=== PATIENT | male | born 1960 ===

== ENCOUNTER → 2021-08-29 | Outpatient (CLI) | payer OTHER ==
--- NOTE | 2021-09-08 11:44 | SLE ---
[facility] [place] [address] POLYSOMNOGRAPHY STUDY Name: BLOSSOM SAWYER Room #: REG TERESITA MataGinaKathyGina#: [id number] Admission: 08/29/21 Attend Phys: Dalia Rodriguez MD Discharge: Date of : 58 Report #: [id number] THIS REPORT FOR: cc: FAM - Family physician unknown FAM - Family physician unknown Lopez Rodriguez MD ~ cc: Ross Shine MD DATE OF SERVICE: 08/29/2021 SLEEP STUDY ATTENDING PHYSICIAN: Attending physician's name is not mentioned. The patient is 60 years old who weighs 290 pounds with a BMI of 40.4. The patient underwent diagnostic sleep study performed at [facility]. During the night study, the patient spent 454 minutes in bed and slept for 308 minutes with a sleep efficiency of 68%, which was low. Sleep latency was 6.7 minutes with a REM latency of 115 minutes. Sleep architecture showed increased stage 1 and stage 2 sleep, normal N3 sleep and reduced REM sleep, which was only 5% of total sleep time. During the night of the study, the patient had 10 obstructive apneas, no mixed apneas, 2 central apneas and 54 hypopneas. The patient's AHI was 12.8 per hour with a REM AHI of 73 per hour and a supine AHI of 50 per hour. EKG monitoring revealed an average heart rate of 69 beats per minute. No sustained arrhythmias observed. PLMs were seen at an index of 28 per hour with only 2 per hour caused EEG arousals. Nocturnal oximetry study revealed an average oxygen saturation of 94% with a lowest of 76%. Six minutes were spent with oxygen saturation of less than 89%. Due to low AHI, the patient did not meet the split night criteria for CPAP initiation. IMPRESSION: 1. Mild obstructive sleep apnea with worsening during supine and REM sleep. Total AHI of 12.8 per hour with a supine AHI of 50 per hour and a REM AHI of 73 per hour. 2. Reduced sleep efficiency resulting from sleep maintenance insomnia. 3. Mild nocturnal hypoxia secondary to obstructive sleep apnea. 4. Moderate PLMs without any significant EEG arousals. [facility] [address] [place] [address] POLYSOMNOGRAPHY STUDY Name: BLOSSOM SAWYER Room #: REG [facility] [place]#: [id number] Admission: 08/29/21 Attend Phys: Dalia Rodriguez MD Discharge: Date of : 58 Report #: [id number] RECOMMENDATIONS: 1. The patient is clinically symptomatic with an [place] score of 13. The patient would benefit from return to the sleep lab for CPAP titration study. Alternatively, home auto CPAP can be considered. 2. Once the patient is optimally treated with CPAP, then follow up in 4-6 weeks to assess compliance and to document clinical improvement. 3. Avoid supine sleep. 4. 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 5. Cautioned regarding driving until symptoms of sleep apnea resolved with above recommendation. 6. PLMs does not need to be treated unless the patient has symptoms of restless legs during the day. <ELECTRONICALLY SIGNED> By: Lopez Rodriguez MD 09/08/21 1144 1746 1849 Lopez Rodriguez MD /nt
== END ==
LOC: SLEEPLAB 16:44
PROVIDERS: ATTEND Internal Medicine Nephrology
DX: G47.33 Obstructive sleep apnea (adult) (pediatric) (principal); R53.83 Other fatigue; E66.9 Obesity, unspecified; R06.83 Snoring

== ENCOUNTER → 2021-09-30 | Outpatient (CLI) | payer OTHER ==
--- NOTE | 2021-10-01 17:14 | SLE ---
[facility] [place] [address] POLYSOMNOGRAPHY STUDY Name: BLOSSOM SAWYER Room #: REG [facility]#: [id number] Admission: 09/30/21 Attend Phys: Lopez Rodriguez MD Discharge: Date of : 58 Report #: [id number] THIS REPORT FOR: cc: FAM - Family physician unknown FAM - Family physician unknown Lopez Rodriguez MD ~ cc: Ross Shine MD DATE OF SERVICE: 10/01/2021 SLEEP STUDY ATTENDING PHYSICIAN: Dr. Ross Shine. The patient is 61 years old who weighs 290 pounds with a BMI of 40.4. The patient's [place] score was 15. The patient had a previous sleep study and was found to have mild PEGGY with worsening during supine and REM sleep. Total AHI was 12.8 per hour with a supine AHI of 50 per hour and a REM AHI of 73 per hour. The patient had reduced sleep efficiency along with mild nocturnal hypoxia and moderate PLMs without any significant EEG arousals. Since the patient was clinically symptomatic, the patient was referred to the Sleep Lab for CPAP titration study. During the night study, the patient spent 361 minutes in bed and slept for 238 minutes with a sleep efficiency of 66%, which was low. Sleep latency was 13.9 minutes with a REM latency of 136 minutes. Sleep architecture showed normal stage I sleep, increased stage 2 sleep, normal slow wave and reduced REM sleep, which was 10.5% of total sleep time. EKG monitoring revealed an average heart rate of 61 beats per minute. No sustained arrhythmias observed. PLMs were seen as an index of 53 per hour with only 4 per hour caused EEG arousals. The patient was started on CPAP at a pressure of 7 cm water and titrated up to 14 cm of water. At the final pressure, the patient had supine sleep as well as REM sleep. The patient's AHI was reduced to 2.4 per hour and oxygen saturation remained above 91%. IMPRESSION: 1. Sleep apnea diagnosed by previous sleep study. 2. No significant nocturnal hypoxia while on CPAP. 3. Severe periodic limb movements without any significant EEG arousals. RECOMMENDATIONS: [facility] [address] [place] [address] POLYSOMNOGRAPHY STUDY Name: BLOSSOM SAWYER Room #: REG [facility]#: [id number] Admission: 09/30/21 Attend Phys: Lopez Rodriguez MD Discharge: Date of : 58 Report #: [id number] 1. CPAP at 14 cm water completely eliminated the patient's sleep apnea and should be used on a nightly basis. 2. Follow up in 4-6 weeks to assess compliance with CPAP and to document clinical improvement. 3. Weight loss is advised. 4. 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 5. Cautioned regarding driving until symptoms of sleep apnea resolve with the use of CPAP. 6. The patient has severe PLMs. The patient should be further evaluated for any symptoms of restless legs during the day. <ELECTRONICALLY SIGNED> By: Lopez Rodriguez MD 10/01/21 1714 1423 1526 Lopez Rodriguez MD /nt
== END ==
LOC: SLEEPLAB 20:56
PROVIDERS: ATTEND Internal Medicine Critical Care Medicine
DX: G47.33 Obstructive sleep apnea (adult) (pediatric) (principal); R53.83 Other fatigue; G47.30 Sleep apnea, unspecified; G47.61 Periodic limb movement disorder